=== PATIENT | female | born 1930 | race Caucasian/White ===

== ENCOUNTER 2017-05-11 00:44 | Inpatient (IN) | payer MEDICARE ==
[~2017-05-11] VITALS: Ht 165.1 cm; Wt 79.0 kg
[2017-05-11] VITALS (16 sets, daily range): BP systolic 122–172; BP diastolic 59–85
[~2017-05-11 00:44] MED LIST: ACET-704 PO; ACET325T9 PO; AMIO100T4 PO; AMIO200T2 PO; ASPI325T8 PO; ATOR20TA PO; CALC-98 PO; CEPH-264 PO; CLON0.25 PO; CLON0.5T PO; FURO-68 PO; FURO20TA3 PO; LEVO50TA5 PO; LOSA25TA4 PO; POTA20TA4 PO; POTA20TA82 PO; ROPI1TAB PO; TOPI100T42 PO
[2017-05-11] MEDS ORDERED: FURO-68 PO (00:58)
[2017-05-11] MEDS ORDERED: ACET500T33 PO (00:58)
[2017-05-11] MEDS ORDERED: LEXAPRO20 MG PO (00:58)
[2017-05-11] MEDS ORDERED: POTA20TA82 PO (00:58)
[2017-05-11] MEDS ORDERED: SPIR25TA3 PO (00:58)
[2017-05-11] MEDS ORDERED: HYDROcodone/APAP 5/325MG 1 TAB TABLET PO PRN (01:45)
[2017-05-11] MEDS ORDERED: ACETAMINOPHEN 325 MG TABLET. PO PRN (01:45)
[2017-05-11] MEDS ORDERED: MORPHINE SULFATE 2 MG/ML DISP.SYRIN. IV PRN (01:45)
[2017-05-11] MEDS ORDERED: ONDANSETRON PF 4 MG/2 ML VIAL. IV PRN (01:45)
[2017-05-11] MEDS ORDERED: HEPARIN 25,000UTS/500ML PREMIX 500 ML IV PRN (02:00)
[2017-05-11] MEDS ORDERED: HEPARIN for IV BOLUS 10,000 UNIT/10 ML VIAL. IV PRN (02:00)
[2017-05-11] MEDS: ANTI-COAG MONITOR BY PHARMACY. MC PRN ×2 (04:03→16:12)
[2017-05-11 04:55] LABS: BASO % 1 % (0-3); EOS % 4 % (0-3); HEMATOCRIT 37.1 % (36.0-47.0); HEMOGLOBIN 11.8 g/dL (12.0-15.5); LYMPH # 1.9 x10^3/uL (1.0-4.8); LYMPH % 30 % (24-48); MEAN CORPUSCULAR HEMOGLOBIN 27 pg (25-35); MEAN CORPUSCULAR HGB CONC 32 g/dL (31-37); MEAN CORPUSCULAR VOLUME 86 fL (79-100); MONO % 9 % (0-9); NEUT % 56 % (31-73); PLATELET COUNT 157 x10^3/uL (140-400); RED BLOOD COUNT 4.31 x10^6/uL (3.50-5.40); RED CELL DISTRIBUTION WIDTH 16.6 % (11.5-14.5); WHITE BLOOD COUNT 6.4 x10^3/uL (4.0-11.0)
[2017-05-11 05:15] LABS: INR 1.2 (0.8-1.1); PROTHROMBIN TIME PATIENT 14.5 SEC (11.7-14.0)
[2017-05-11 05:39] LABS: CALCIUM 9.2 mg/dL (8.5-10.1); CREATININE 1.3 mg/dL (0.6-1.0); GFR 38.7; POTASSIUM 3.5 mmol/L (3.5-5.1)
[2017-05-11] MEDS: LEVOTHYROXINE 50 MCG TABLET PO SCH (06:11)
[2017-05-11] MEDS ORDERED: cloNIDine HCL 0.1 MG TABLET PO PRN (07:00)
[2017-05-11] MEDS: CALCIUM CARB/VIT D3 500/200 TABLET. PO SCH ×2 (08:00→15:16)
[2017-05-11] MEDS: CITALOPRAM 20 MG TABLET. PO SCH (09:00)
[2017-05-11] MEDS: ASPIRIN 325 MG TABLET PO SCH (09:01)
[2017-05-11] MEDS: clonazePAM 0.5 MG TABLET PO SCH (09:01)
[2017-05-11] MEDS: AMIODARONE HCL 200 MG TABLET. PO SCH (09:02)
[2017-05-11] MEDS: IV NORMAL SALINE 1000ML BAG 1,000 ML IV SCH ×2 (09:02→19:30)
[2017-05-11] MEDS: ACETYLCYSTEINE 20% ORAL SOLN 600 MG/3 ML SYRINGE. PO SCH ×2 (09:04→20:52)
--- NOTE | 2017-05-11 09:40 | PDOC2 ---
DION BETANCOURT ABLE BODIED WATCHMAN 05/11/17 0940: CARDIAC CONSULT DATE OF CONSULT Date of Consult DATE: 05/11/17 TIME: 09:20 REASON FOR CONSULT Reason for Consult: CP REFERRING PHYSICIAN Referring Physician: Bennett SOURCE Source: Chart review, Patient HISTORY OF PRESENT ILLNESS HISTORY OF PRESENT ILLNESS This is a pleasant 87 yo female admitted for complains of chest pain. Reports that she started having chest pressure yesterday lasting about 2 hours of high intensity then lingered on. She has been having some AMIN and feeling weaker than her usual. Denies any SOA at rest, nausea, palpitations. She is significant for PCI/stent in the past. She has not seen her extrusion technician in>1 yr. Denies nay recent falls or injury and verbalized medication compliance. PAST MEDICAL HISTORY Past Medical History Cardiovascular: AFIB, CAD, HTN, Hyperlipidemia, Other (Sick sinus syndrome), Valvular insufficiency Pulmonary: No pertinent hx CENTRAL NERVOUS SYSTEM: Seizure, TIA, Other (No pertinent ) GI: No pertinent hx Heme/Onc: No pertinent hx Hepatobiliary: No pertinent hx Psych: Anxiety Musculoskeletal: Osteoarthritis Rheumatologic: No pertinent hx Infectious disease: No pertinent hx ENT: No pertinent hx Renal/: CKD3 Endocrine: Hypothyroidism Dermatology: No pertinent hx PAST SURGICAL HISTORY Past Surgical History Pacemaker ([facility] 2013), Total knee replacement (right), Hysterectomy, Other ( brain tumor removal; cardiac cath with stent placement 2008) FAMILY HISTORY Family History Heart Disease (father and mother) SOCIAL HISTORY Smoke: No ALCOHOL: none Drugs: None Lives: Alone (assisted living) CURRENT MEDICATIONS CURRENT MEDICATIONS Current Medications Medications (Trade) Dose Ordered Sig/Dominique Route PRN Reason Start Time Stop Time Status Last Admin Dose Admin Amiodarone HCl (Cordarone) 200 mg DAILY08 PO 05/11/17 08:00 05/11/17 09:02 Aspirin (Yvan Aspirin) 325 mg DAILY PO 05/11/17 09:00 05/11/17 09:01 Levothyroxine Sodium (Synthroid) 50 mcg DAILY07 PO 05/11/17 07:00 05/11/17 06:11 Clonazepam (KlonoPIN) 0.25 mg DAILY PO 05/11/17 09:00 05/11/17 09:01 Info (Anti-Coagulation Monitoring By Pharmacy) 1 each PRN DAILY PRN MC SEE COMMENTS 05/11/17 02:15 05/11/17 04:03 Sodium Chloride 1,000 ml @ 80 mls/hr [id number] IV 05/11/17 07:00 05/11/17 09:02 Acetylcysteine (Mucomyst 20% Oral Solution) 600 mg BID PO 05/11/17 09:00 05/13/17 08:59 05/11/17 09:04 ALLERGIES ALLERGIES: Coded Allergies: Sulfa (Sulfonamide Antibiotics) (Verified Allergy, Intermediate, 01/05/14) phenytoin (Verified Allergy, Intermediate, 01/05/14) ROS Review of System 14 point ROS evaluated with pertinent positives noted per HPI PHYSICAL EXAM General: Alert, Oriented X3, Cooperative, No acute distress HEENT: Atraumatic, Mucous membr. moist/pink Lungs: Clear to auscultation, Normal air movement Heart: Regular rate (V paced), Normal S1, Normal S2, Other (3/6 systolic murmur to LLS border) Abdomen: Soft, No tenderness Extremities: No cyanosis, No edema Skin: No breakdown, No significant lesion Neuro: Normal speech, Sensation intact Psych/Mental Status: Mental status NL, Mood NL MUSCULOSKELETAL: Osteoarthritic changes both hands VITALS VITALS Vital Signs Date Time Temp Pulse Resp B/P (MAP) Pulse Ox O2 Delivery O2 Flow Rate FiO2 05/11/17 09:02 70 154/74 05/11/17 07:00 97.5 18 94 Room Air 97.5 LABS Lab: Laboratory Tests Test 05/11/17 04:00 White Blood Count 6.4 x10^3/uL (4.0-11.0) Red Blood Count 4.31 x10^6/uL (3.50-5.40) Hemoglobin 11.8 g/dL (12.0-15.5) Hematocrit 37.1 % (36.0-47.0) Mean Corpuscular Volume 86 fL (79-100) Mean Corpuscular Hemoglobin 27 pg (25-35) Mean Corpuscular Hemoglobin Concent 32 g/dL (31-37) Red Cell Distribution Width 16.6 % (11.5-14.5) Platelet Count 157 x10^3/uL (140-400) Neutrophils (%) (Auto) 56 % (31-73) Lymphocytes (%) (Auto) 30 % (24-48) Monocytes (%) (Auto) 9 % (0-9) Eosinophils (%) (Auto) 4 % (0-3) Basophils (%) (Auto) 1 % (0-3) Neutrophils # (Auto) 3.6 x10^3uL (1.8-7.7) Lymphocytes # (Auto) 1.9 x10^3/uL (1.0-4.8) Monocytes # (Auto) 0.6 x10^3/uL (0.0-1.1) Eosinophils # (Auto) 0.3 x10^3/uL (0.0-0.7) Basophils # (Auto) 0.0 x10^3/uL (0.0-0.2) Prothrombin Time 14.5 SEC (11.7-14.0) Prothromb Time International Ratio 1.2 (0.8-1.1) Heparin Anti-Xa Act, Unfractionated 0.74 IU/mL (0.30-0.70) Sodium Level 142 mmol/L (136-145) Potassium Level 3.5 mmol/L (3.5-5.1) Chloride Level 107 mmol/L (98-107) Carbon Dioxide Level 25 mmol/L (21-32) Anion Gap 10 (6-14) Blood Urea Nitrogen 27 mg/dL (7-20) Creatinine 1.3 mg/dL (0.6-1.0) Estimated GFR (Cockcroft-Gault) 38.7 Glucose Level 86 mg/dL (70-99) Calcium Level 9.2 mg/dL (8.5-10.1) Troponin I Quantitative 0.117 ng/mL (0.000-0.055) ECHOCARDIOGRAM ECHOCARDIOGRAM <Conclusion> The left ventricle is normal size. The left ventricular systolic function is normal and the ejection fraction is within normal range. The Ejection Fraction is 55-60%. The atrial septum is aneurysmal and color flow Doppler reveals a small patent foramen ovale. There is no significant aortic valvular stenosis. Doppler and Color Flow revealed moderate aortic regurgitation. Doppler and Color-flow revealed mild mitral regurgitation. Doppler and Color Flow revealed moderate tricuspid regurgitation. The PA pressure was estimated at 56 mmHg. Doppler and Color Flow revealed trace to mild pulmonic valvular regurgitation. There is no evidence of significant pericardial effusion. DATE: 11/08/141616 STRESS TEST STRESS TEST Conclusion 1. No EKG evidence of stress-induced ischemia. 2. Nuclear imaging shows no reversible ischemia or infarct. 3. Normal left ventricular systolic function with ejection fraction of greater than 70%. 4. Low risk Lexiscan nuclear stress test. DATE: 11/08/14 1550 ASSESSMENT/PLAN ASSESSMENT/PLAN 1. NSTEMI 2. CAD: 2008 s/p PCI/stent placement to RCA and OMB 3. HTN: controlled 4. PAFIB: V paced with first degree AV block. 5. HLP 6. SSS/PPM in situ: [facility] 2013 7. Hypothyroidism 8. CKD3 9. Small PFO 10. Multiple falls 6x in the last 6 months no traumatic injury. No dizziness, reports imbalance, defer to PCP Recommendations 1. Risks and benefits of LHC discussed and agreeable to proceed 2. interrogate device. 3. TTE, TSH lipids. 4. Hep gtt per protocol, IVF. 5. Secondary prevention, continue amiodarone. Problems: BIANKA CANDELARIA MD 05/11/17 1630: CARDIAC CONSULT ALLERGIES ALLERGIES: Coded Allergies: Sulfa (Sulfonamide Antibiotics) (Verified Allergy, Intermediate, 01/05/14) phenytoin (Verified Allergy, Intermediate, 01/05/14) ASSESSMENT/PLAN ASSESSMENT/PLAN Pt. seen and examined. Agree with above QUALITY ASSURANCE TECHNICIAN note. LHC demonstrates small vessel disease. Plan for med titration first and then consider PCI if med therapy fails. Thanks for consultation. Problems: DION BETANCOURT APRN May 11, 2017 09:40 BIANKA CANDELARIA MD May 11, 2017 16:30
[2017-05-11 09:54] LABS: CHOLESTEROL/HDL RATIO 2.2
--- NOTE | 2017-05-11 10:15 | PDOC1 ---
History and Physical Date of Admission Date of Admission DATE: 05/11/17 TIME: 10:12 Identification/Chief Complaint Chief Complaint chest pain soa Problems: Source Source: Caregiver, Chart review, Patient History of Present Illness History of Present Illness 87 y.o female who is a known cadiac pt of [facility] cards group, transferred from [place] for CP AMIN. Significant co morbids cardiac aguilera including hx stents and pacer, started on heparin gtt and transferred here with plans of [facility] today, Pt CP free, VS ok, no overnight calls, Past Medical History Cardiovascular: AFIB, CAD, HTN, Hyperlipidemia, Other Pulmonary: No pertinent hx CENTRAL NERVOUS SYSTEM: Seizure, TIA, Other GI: No pertinent hx Heme/Onc: No pertinent hx Hepatobiliary: No pertinent hx Psych: Anxiety Musculoskeletal: Osteoarthritis Rheumatologic: No pertinent hx Infectious disease: No pertinent hx Renal/: No pertinent hx Endocrine: Hypothyroidism Past Surgical History Past Surgical History: Pacemaker, Total knee replacement, Hysterectomy, Other Family History Family History: Heart Disease Social History Smoke: No ALCOHOL: none Drugs: None Current Medications Current Medications Current Medications Ondansetron HCl (Zofran) 4 mg PRN Q6HRS PRN IV NAUSEA/VOMITING; Start at 01:45 Acetaminophen (Tylenol) 650 mg PRN Q6HRS PRN PO MILD PAIN / TEMP; Start at 01:45 Morphine Sulfate 2 mg PRN Q2HR PRN IV SEVERE PAIN; Start 05/11/17 at 01:45 Acetaminophen/ Hydrocodone Bitart (Lortab 5/325) 1 tab PRN Q6HRS PRN PO MODERATE PAIN; Start 05/11/17 at 01:45 Amiodarone HCl (Cordarone) 200 mg DAILY08 PO Last administered on 05/11/17 09 :02; Start 05/11/17 at 08:00 Aspirin (Yvan Aspirin) 325 mg DAILY PO Last administered on 05/11/17 09:01; Start 05/11/17 at 09:00 Atorvastatin Calcium (Lipitor) 20 mg HS PO ; Start 05/11/17 at 21:00 Clonazepam (KlonoPIN) 0.5 mg HS PO ; Start 05/11/17 at 21:00 Furosemide (Lasix) 40 mg DAILY PO ; Start 05/11/17 at 09:00 Levothyroxine Sodium (Synthroid) 50 mcg DAILY07 PO Last administered on 06:11; Start 05/11/17 at 07:00 Spironolactone (Aldactone) 25 mg DAILY PO ; Start 05/11/17 at 09:00 Topiramate (Topamax) 100 mg HS PO ; Start 05/11/17 at 21:00 Calcium/Vitamin D (Oscal D 500mg/ 200uts) 1 tab BIDWMEALS PO ; Start 05/11/17 at 08:00 Citalopram Hydrobromide (CeleXA) 40 mg DAILY PO ; Start 05/11/17 at 09:00 Potassium Chloride (Klor-Con) 20 meq DAILYWBKFT PO ; Start 05/11/17 at 08:00 Clonazepam (KlonoPIN) 0.25 mg DAILY PO Last administered on 05/11/17 09:01; Start 05/11/17 at 09:00 Heparin Sodium/ Dextrose 500 ml @ 0 mls/hr CONT PRN IV SEE I/O RECORD; Start 05/11/17 at 02:00 Heparin Sodium (Porcine) (Heparin Sodium) 1,950 unit PRN Q6HRS PRN IV FOR UFH LEVEL LESS THAN 0.2; Start 05/11/17 at 02:00 Info (Anti-Coagulation Monitoring By Pharmacy) 1 each PRN DAILY PRN MC SEE COMMENTS Last administered on 05/11/17 04:03; Start 05/11/17 at 02:15 Sodium Chloride 1,000 ml @ 80 mls/hr [id number] IV Last administered on 09:02; Start 05/11/17 at 07:00 Acetylcysteine (Mucomyst 20% Oral Solution) 600 mg BID PO Last administered on 05/11/17 09:04; Start 05/11/17 at 09:00; Stop 05/13/17 at 08:59 Clonidine HCl (Catapres) 0.1 mg PRN Q1HR PRN PO HYPERTENSION, SEE COMMENTS; Start 05/11/17 at 07:00 Active Scripts Active Reported Spironolactone 25 Mg Tablet 1 Tab PO DAILY Tylenol Extra Strength (Acetaminophen) 500 Mg Tablet 1,000 Mg PO Q8HRS PRN Potassium Chloride 20 Meq Tablet.er 20 Meq PO DAILY Lexapro (Escitalopram Oxalate) 20 Mg Tablet 1 Tab PO DAILY Lasix (Furosemide) 40 Mg Tablet 1 Tab PO DAILY Calcium + Vitamin D Tablet (Calcium Carbonate/Vitamin D3) 1 Each Tablet 1 Each PO BID94 Clonazepam 0.25 Mg Tab.rapdis 0.25 Mg PO DAILY Amiodarone Hcl 100 Mg Tablet 200 Mg PO DAILY08 Lipitor (Atorvastatin Calcium) 20 Mg Tablet 20 Mg PO HS Topamax (Topiramate) 100 Mg Tablet 100 Mg PO HS Klonopin (Clonazepam) 0.5 Mg Tablet 0.5 Mg PO HS Aspirin 325 Mg Tablet 325 Mg PO DAILY Levothyroxine Sodium 50 Mcg Tablet 50 Mcg PO DAILYAC Allergies Allergies: Coded Allergies: Sulfa (Sulfonamide Antibiotics) (Verified Allergy, Intermediate, 01/05/14) phenytoin (Verified Allergy, Intermediate, 01/05/14) ROS General: No: Chills, Night Sweats, Fatigue, Malaise, Appetite, Other PSYCHOLOGICAL ROS: No: Anxiety, Behavioral Disorder, Concentration difficultie , Decreased libido, Depression, Disorientation, Hallucinations, Hostility, Irritablity, Memory difficulties, Mood Swings, Obsessive thoughts, Physical abuse, Sexual abuse, Sleep disturbances, Suicidal ideation, Other Eyes: No Blurry vision, No Decreased vision, No Double vision, No Dry eyes, No Excessive tearing, No Eye Pain, No Itchy Eyes, No Loss of vision, No Photophobia , No Scotomata, No Uses contacts, No Uses glasses, No Other HEENT: No: Heacaches, Visual Changes, Hearing change, Nasal congestion, Nasal discharge, Oral lesions, Sinus pain, Sore Throat, Epistaxis, Sneezing, Snoring, Tinnitus, Vertigo, Vocal changes, Other ALLERGY AND IMMUNOLOGY: No: Hives, Insect Bite Sensitivity, Itchy/Watery Eyes, Nasal Congestion, Post Nasal Drip, Seasonal Allergies, Other Hematological and Lymphatic: No: Bleeding Problems, Blood Clots, Blood Transfusions, Brusing, Night Sweats, Pallor, Swollen Lymph Nodes, Other ENDOCRINE: No: Breast Changes, Galactorrhea, Hair Pattern Changes, Hot Flashes , Malaise/lethargy, Mood Swings, Palpitations, Polydipsia/polyuria, Skin Changes , Temperature Intolerance, Unexpected Weight Changes, Other Breast: No New/Changing Breast Lumps, No Nipple changes, No Nipple discharge, No Other Respiratory: YES: Shortness of breath, SOB with excertion Cardiovascular: yes Chest Pain Gastrointestinal: No Nausea, No Vomiting, No Abdominal Pain, No Diarrhea, No Constipation, No Melena, No Hematochezia, No Other Genitourinary: No Dysuria, No Frequency, No Incontinence, No Hematuria, No Retention, No Discharge, No Urgency, No Pain, No Flank Pain, No Other, No , No , No , No , No , No , No Musculoskeletal: No Gait Disturbance, No Joint Pain, No Joint Stiffness, No Joint Swelling, No Muscle Pain, No Muscular Weakness, No Pain In:, No Swelling In:, No Other Neurological: No Behavorial Changes, No Bowel/Bladder ControlChng, No Confusion , No Dizziness, No Gait Disturbance, No Headaches, No Impaired Coord/balance, No Memory Loss, No Numbness/Tingling, No Seizures, No Speech Problems, No Tremors, No Visual Changes, No Weakness, No Other Skin: No Dry Skin, No Eczema, No Hair Changes, No Lumps, No Mole Changes, No Mottling, No Nail Changes, No Pruritus, No Rash, No Skin Lesion Changes, No Other, No Acne Physical Exam General: Alert, Oriented X3, Cooperative, No acute distress HEENT: Atraumatic, PERRLA, EOMI Lungs: Clear to auscultation, Normal air movement Heart: S1S2, RRR, no thrills, no rubs, no gallops, no murmurs Cardiovascular: S1, S2 Breasts: Normal, Rt breast nml w/o mass, Lt breast nml w/o mass, Nipples normal Abdomen: Normal bowel sounds, Soft, No tenderness, No hepatosplenomegaly, No masses Rectal Exam: not examined Extremities: No clubbing, No cyanosis, No edema, Normal pulses, No tenderness/ swelling Skin: No rashes, No breakdown, No significant lesion Neuro: Normal gait, Normal speech, Strength at 5/5 X4 ext, Normal tone, Sensation intact, Cranial nerves 3-12 NL, Reflexes 2+ Vitals Vitals Vital Signs Date Time Temp Pulse Resp B/P (MAP) Pulse Ox O2 Delivery O2 Flow Rate FiO2 05/11/17 09:02 70 154/74 05/11/17 07:00 97.5 18 94 Room Air 97.5 Labs Labs Laboratory Tests Test 05/11/17 04:00 White Blood Count 6.4 x10^3/uL (4.0-11.0) Red Blood Count 4.31 x10^6/uL (3.50-5.40) Hemoglobin 11.8 g/dL (12.0-15.5) Hematocrit 37.1 % (36.0-47.0) Mean Corpuscular Volume 86 fL (79-100) Mean Corpuscular Hemoglobin 27 pg (25-35) Mean Corpuscular Hemoglobin Concent 32 g/dL (31-37) Red Cell Distribution Width 16.6 % (11.5-14.5) Platelet Count 157 x10^3/uL (140-400) Neutrophils (%) (Auto) 56 % (31-73) Lymphocytes (%) (Auto) 30 % (24-48) Monocytes (%) (Auto) 9 % (0-9) Eosinophils (%) (Auto) 4 % (0-3) Basophils (%) (Auto) 1 % (0-3) Neutrophils # (Auto) 3.6 x10^3uL (1.8-7.7) Lymphocytes # (Auto) 1.9 x10^3/uL (1.0-4.8) Monocytes # (Auto) 0.6 x10^3/uL (0.0-1.1) Eosinophils # (Auto) 0.3 x10^3/uL (0.0-0.7) Basophils # (Auto) 0.0 x10^3/uL (0.0-0.2) Prothrombin Time 14.5 SEC (11.7-14.0) Prothromb Time International Ratio 1.2 (0.8-1.1) Heparin Anti-Xa Act, Unfractionated 0.74 IU/mL (0.30-0.70) Sodium Level 142 mmol/L (136-145) Potassium Level 3.5 mmol/L (3.5-5.1) Chloride Level 107 mmol/L (98-107) Carbon Dioxide Level 25 mmol/L (21-32) Anion Gap 10 (6-14) Blood Urea Nitrogen 27 mg/dL (7-20) Creatinine 1.3 mg/dL (0.6-1.0) Estimated GFR (Cockcroft-Gault) 38.7 Glucose Level 86 mg/dL (70-99) Calcium Level 9.2 mg/dL (8.5-10.1) Troponin I Quantitative 0.117 ng/mL (0.000-0.055) Triglycerides Level 62 mg/dL (0-150) Cholesterol Level 152 mg/dL (0-200) LDL Cholesterol, Calculated 70 mg/dL (0-100) VLDL Cholesterol, Calculated 12 mg/dL (0-40) Non-HDL Cholesterol Calculated 82 mg/dL (0-129) HDL Cholesterol 70 mg/dL (40-60) Cholesterol/HDL Ratio 2.2 Laboratory Tests Test 05/11/17 04:00 White Blood Count 6.4 x10^3/uL (4.0-11.0) Red Blood Count 4.31 x10^6/uL (3.50-5.40) Hemoglobin 11.8 g/dL (12.0-15.5) Hematocrit 37.1 % (36.0-47.0) Mean Corpuscular Volume 86 fL (79-100) Mean Corpuscular Hemoglobin 27 pg (25-35) Mean Corpuscular Hemoglobin Concent 32 g/dL (31-37) Red Cell Distribution Width 16.6 % (11.5-14.5) Platelet Count 157 x10^3/uL (140-400) Neutrophils (%) (Auto) 56 % (31-73) Lymphocytes (%) (Auto) 30 % (24-48) Monocytes (%) (Auto) 9 % (0-9) Eosinophils (%) (Auto) 4 % (0-3) Basophils (%) (Auto) 1 % (0-3) Neutrophils # (Auto) 3.6 x10^3uL (1.8-7.7) Lymphocytes # (Auto) 1.9 x10^3/uL (1.0-4.8) Monocytes # (Auto) 0.6 x10^3/uL (0.0-1.1) Eosinophils # (Auto) 0.3 x10^3/uL (0.0-0.7) Basophils # (Auto) 0.0 x10^3/uL (0.0-0.2) Prothrombin Time 14.5 SEC (11.7-14.0) Prothromb Time International Ratio 1.2 (0.8-1.1) Heparin Anti-Xa Act, Unfractionated 0.74 IU/mL (0.30-0.70) Sodium Level 142 mmol/L (136-145) Potassium Level 3.5 mmol/L (3.5-5.1) Chloride Level 107 mmol/L (98-107) Carbon Dioxide Level 25 mmol/L (21-32) Anion Gap 10 (6-14) Blood Urea Nitrogen 27 mg/dL (7-20) Creatinine 1.3 mg/dL (0.6-1.0) Estimated GFR (Cockcroft-Gault) 38.7 Glucose Level 86 mg/dL (70-99) Calcium Level 9.2 mg/dL (8.5-10.1) Troponin I Quantitative 0.117 ng/mL (0.000-0.055) Triglycerides Level 62 mg/dL (0-150) Cholesterol Level 152 mg/dL (0-200) LDL Cholesterol, Calculated 70 mg/dL (0-100) VLDL Cholesterol, Calculated 12 mg/dL (0-40) Non-HDL Cholesterol Calculated 82 mg/dL (0-129) HDL Cholesterol 70 mg/dL (40-60) Cholesterol/HDL Ratio 2.2 VTE Prophylaxis Ordered VTE Prophylaxis Devices: Yes VTE Pharmacological Prophylaxi: Yes Assessment/Plan Assessment/Plan NSTEMI CAD: 2009 s/p PCI/stent placement to RCA and OMB. Stable. HTN PAFIB: on Amio HLP SSS/PPM in situ: [facility] 2013 Hypothyroidism CKD3 PFO PLAn: NPO C OCnt emds SUpportive meds Heparin gtt TARSHA LOU MD May 11, 2017 10:15
[2017-05-11] MEDS ORDERED: IODIXANOL 320 MG/ML 100 ML VIAL. ONE (12:33)
[2017-05-11] MEDS ORDERED: LIDOCAINE 2% 20 ML VIAL. ONE (12:33)
[2017-05-11] MEDS ORDERED: HEPARIN for IV BOLUS 10,000 UNIT/10 ML VIAL. ONE (13:09)
[2017-05-11] MEDS ORDERED: fentaNYL PF VIAL 100 MCG/2 ML VIAL ONE (13:09)
[2017-05-11] MEDS ORDERED: MIDAZOLAM HCL/PF 2 MG/2 ML VIAL. ONE (13:09)
[2017-05-11] MEDS ORDERED: VERAPAMIL 5 MG/2 ML VIAL. ONE (13:09)
--- NOTE | 2017-05-11 13:10 | PDOC ---
MODERATE SEDATION ASSESSMENT RISKS/ALTERNATIVES Risks/Alternatives Risks and alternatives of this type of sedation and procedure discussed with: RISK/ALTERNATIVES: Patient H & P ON CHART H & P H & P on chart and reviewed for co-morbid conditions and appropriate labs. H&P ON CHART: Yes STATUS PREG STATUS ASSESSED: N/A MEDS/ALLERGIES REVIEWED Meds/Allergies Reviewed Medications and Allergies including time and route of recently administered narcotics and sedatives. MEDS/ALLERGIES REVIEWED: Yes ASA RATING ASA RATING: III AIRWAY ASSESSMENT Airway Assessment Airway patency, oral function limitations, presence of caps, crowns, dentures, partials, and ability to extend neck assessed. AIRWAY ASSESSMENT: Yes MALLAMPATI SCORE MALLAMPATI SCORE: II PRE-SEDATION ASSESSMENT PRE-SEDATION ASSESSMENT: Yes BIANKA CANDELARIA MD May 11, 2017 13:10
[2017-05-11] MEDS ORDERED: NITROGLYCERIN 200 MCG/2 ML SYRINGE FOR CATH/VASC LAB. ONE (13:11)
[2017-05-11] MEDS ORDERED: hydrALAZINE 20 MG/ML VIAL. ONE (13:15)
[2017-05-11] MEDS ORDERED: NITROGLYCERIN 200 MCG/2 ML SYRINGE FOR CATH/VASC LAB. IART ONE (13:30)
[2017-05-11] MEDS ORDERED: LIDOCAINE 2% 20 ML VIAL. IJ ONE (13:30)
[2017-05-11] MEDS ORDERED: fentaNYL PF VIAL 100 MCG/2 ML VIAL IV ONE (13:30)
[2017-05-11] MEDS ORDERED: HEPARIN for IV BOLUS 10,000 UNIT/10 ML VIAL. IART ONE (13:30)
[2017-05-11] MEDS ORDERED: hydrALAZINE 20 MG/ML VIAL. IVP ONE (13:30)
[2017-05-11] MEDS ORDERED: MIDAZOLAM HCL/PF 2 MG/2 ML VIAL. IV ONE (13:30)
[2017-05-11] MEDS ORDERED: IODIXANOL 320 MG/ML 100 ML VIAL. IART ONE (13:30)
[2017-05-11] MEDS ORDERED: VERAPAMIL 5 MG/2 ML VIAL. IART ONE (13:30)
--- NOTE | 2017-05-11 13:33 | CARD ---
APPROVED REPORT EXAM: Two-dimensional and M-mode echocardiogram with Doppler and color Doppler. Other Information Quality : Good INDICATION Chest Pain 2D DIMENSIONS Left Atrium(2D)4.7 (1.6-4.0cm)IVSd1.3 (0.7-1.1cm) Aortic Root(2D)2.7 (2.0-3.7cm)LVDd4.3 (3.9-5.9cm) LVOT Diameter2.0 (1.8-2.4cm)PWd1.3 (0.7-1.1cm) LVDs3.2 (2.5-4.0cm)FS (%) 26.0 % SV42.4 mlLVEF(%)51.3 (>50%) Aortic Valve AoV Peak Hudson.161.9cm/sAoV VTI35.7cm AO Peak GR.10.5mmHgLVOT Peak Hudson.77.5cm/s AO Mean GR.6mmHgAVA (VMAX)1.52cm2 MARILU (VTI)1.84ps5BR P 1/2 [id number] Mitral Valve MV E Yrykilxk83.7cm/sMV DECEL [id number] MV A Salrrfjs49.2cm/sE/A Ratio2.7 Tricuspid Valve TR P. Mkjxgrpr346jn/sRAP [id number] TR Peak Gr.99zyQoYUMG36wvKa LEFT VENTRICLE The left ventricle is normal size. There is mild to moderate concentric left ventricular hypertrophy. Left ventricle systolic function is borderline low-normal. The estimated Ejection Fraction is 50%. S eptal wall motion abnormality likely related to pacing. Moderate diastolic dysfunction. RIGHT VENTRICLE The right ventricle is normal size. The right ventricular systolic function is normal. Pacer wire not ed in Right Ventricle and Right Atria. ATRIA The left atrium is severely dilated. The right atrium is severely dilated. Interatrial septum is inta ct without evidence of ASD or PFO, noted on 2-D or Doppler imaging. AORTIC VALVE The aortic valve is mildly thickened. Doppler and Color Flow revealed mild aortic regurgitation. Ther e is no significant aortic valvular stenosis. MITRAL VALVE Mitral annular calcification is mild. There is no evidence of mitral valve prolapse. There is no mitr al valve stenosis. Doppler and Color-flow revealed mild mitral regurgitation. TRICUSPID VALVE The anterior leaflet is thickened. Doppler and Color Flow revealed moderate tricuspid regurgitation. There is moderate pulmonary hypertension. The PA pressure was estimated at 50 mmHg. There is no tricu spid valve stenosis. PULMONIC VALVE Doppler and Color Flow revealed trace to mild pulmonic valvular regurgitation. There is no pulmonic v alvular stenosis. GREAT VESSELS The aortic root is normal in size. The ascending aorta is normal in size. IVC appears dilated and landrum s not collapse with inspiration. PERICARDIAL EFFUSION There is no pleural effusion. There is no evidence of significant pericardial effusion. Critical Notification Critical Value: No <Conclusion> Left ventricle systolic function is borderline low-normal. The estimated Ejection Fraction is 50%. Septal wall motion abnormality likely related to pacing. Moderate diastolic dysfunction. Pacer wire noted in Right Ventricle and Right Atria. Interatrial septum is intact without evidence of ASD or PFO, noted on 2-D or Doppler imaging. Doppler and Color Flow revealed mild aortic regurgitation. Doppler and Color Flow revealed moderate tricuspid regurgitation. There is moderate pulmonary hyperte nsion. The PA pressure was estimated at 50 mmHg.
[2017-05-11] MEDS: FUROSEMIDE 40 MG TABLET. PO SCH (15:15)
[2017-05-11] MEDS: SPIRONOLACTONE 25 MG TABLET PO SCH (15:15)
[2017-05-11] MEDS: POTASSIUM CHLORIDE 20 MEQ TABLET.ER. PO SCH (15:16)
--- NOTE | 2017-05-11 16:04 | CARD ---
APPROVED REPORT Procedure(s) performed: SEDATION TIME: 34 MINUTES Left heart cath, coronary angiography HISTORY The patient is a 87 year-old female with a history of : coronary artery disease, hypertension, dyslip idemia. INDICATION The indication(s) include : non-STEMI . CASE TECHNIQUE During this case, Fluoroscopy and low osmolar contrast were used for imaging. PROCEDURE NARRATIVE The patient was brought electively to the cardiac catheterization lab. A timeout was performed confi rming the patient's name, date of , procedure, and site of procedure. All necessary personnel w ere wearing the appropriate protective equipment and radiation monitor devices. After explaining the risks and benefits of the procedure and alternatives, informed consent was obtained. (See nursing no devyn for medications administered). The right wrist was sterilely prepped and draped in the usual fas hion. The right wrist was infiltrated with 1 mL of 2% lidocaine for subcutaneous anesthesia. A 6 Fr ench Terumo glide sheath was inserted into the right radial artery without difficulty. Right and lef t coronary angiography was performed using a 6Fr TIG 4.0 catheter. Left ventricular end diastolic pr essure was obtained with a pigtail catheter and pullback was performed after left ventriculography. All catheter exchanges and advancements were performed over a guidewire. At case completion the righ t radial sheath was removed and a Terumo radial band was applied with 13 ml of air. The patient tole rated the procedure well and there were no immediate complications. HEMODYNAMICS: LVEDP 20 mm Hg No gradient on LV to aortic pullback. LEFT VENTRICULOGRAM: Deferred due to renal insufficiency. CORONARY ANGIOGRAPHY: LM is a moderate caliber vessel with approximatel 30% stenosis. LAD is a moderate caliber vessel with an ostial 30% stenosis followed by proximal post-stenotic dilat ion and mild irregularities throughout the vessel of up to 20%. Three small caliber diagonal vessels are free of significant disaese. LCx is a small caliber non-dominant vessel a proximal stent extending into the OM1 with mild diffuse 50% ISR The proximal to distal LCx is jailed by the OM1 stent and has a stenosis of approximately 90%. RCA is a large caliber dominant vessel with a patent proximal and distal stent. There is mild diffuse proximal to mid 30% stenosis, a 50% ISR of the distal stent. RPDA is a small caliber vessel with mild diffuse irregularities of up to 30% RPDA is a moderate caliber vessel with normal angiographic appearance. Conclusion 1. Moderate three vessel coronary artery disease without evidence of focal high grade stenosis. 2. Mildly elevate LVEDP at 20 mm Hg. Recommendations 1. Proximal LCx jailed by OM1 stent, would treat medically and consider PCI only if refractory angin a despite adequate medical therapy and BP control (SBP > 180 since arrival to hospital). OM1/LCx are small caliber vessels and not easily amenable to PCI. 2. Aggresive BP control. 3. F/u with Dr. Cerna on outpt basis.
[2017-05-11 16:11] LABS: BILIRUBIN,URINE NEGATIVE (NEG); GLUCOSE,URINE NEGATIVE (NEG); NITRITE,URINE POSITIVE (NEG); PH,URINE 7.5; PROTEIN,URINE NEGATIVE (NEG-TRACE); UROBILINOGEN,URINE 0.2 mg/dL (0.2 mg/dL)
[2017-05-11 16:18] LABS: BACTERIA,URINE MANY /HPF (0-FEW)
[2017-05-11 16:19] LABS: RBC,URINE 0 /HPF (0-2); SQUAMOUS EPITHELIAL CELL,UR OCC /LPF
[2017-05-11] MEDS: ISOSORBIDE MONONITRATE ER 30 MG TAB.ER.24H PO SCH (17:41)
[2017-05-11] MEDS ORDERED: TOPIRAMATE 100 MG TABLET. PO SCH (21:00)
[2017-05-11] MEDS ORDERED: clonazePAM 0.5 MG TABLET PO SCH (21:00)
[2017-05-11] MEDS ORDERED: ATORVASTATIN CALCIUM 20 MG TABLET PO SCH (21:00)
[2017-05-12] MEDS: IV NORMAL SALINE 1000ML BAG 1,000 ML IV SCH (00:37)
[2017-05-12 03:50] VITALS: BP 131/63
[2017-05-12 05:13] LABS: HEMATOCRIT 36.6 % (36.0-47.0); HEMOGLOBIN 11.8 g/dL (12.0-15.5); RED BLOOD COUNT 4.25 x10^6/uL (3.50-5.40); RED CELL DISTRIBUTION WIDTH 16.9 % (11.5-14.5); WHITE BLOOD COUNT 6.4 x10^3/uL (4.0-11.0)
[2017-05-12 05:39] LABS: CALCIUM 8.7 mg/dL (8.5-10.1); CREATININE 1.1 mg/dL (0.6-1.0); POTASSIUM 3.3 mmol/L (3.5-5.1)
[2017-05-12] MEDS: LEVOTHYROXINE 50 MCG TABLET PO SCH (06:35)
[2017-05-12 07:00] VITALS: BP 152/64
[2017-05-12] MEDS: ACETYLCYSTEINE 20% ORAL SOLN 600 MG/3 ML SYRINGE. PO SCH (09:36)
[2017-05-12] MEDS: CITALOPRAM 20 MG TABLET. PO SCH (09:37)
[2017-05-12] MEDS: ASPIRIN 325 MG TABLET PO SCH (09:37)
[2017-05-12] MEDS: CALCIUM CARB/VIT D3 500/200 TABLET. PO SCH (09:37)
[2017-05-12] MEDS: clonazePAM 0.5 MG TABLET PO SCH (09:37)
[2017-05-12] MEDS: FUROSEMIDE 40 MG TABLET. PO SCH (09:37)
[2017-05-12] MEDS: AMIODARONE HCL 200 MG TABLET. PO SCH (09:38)
[2017-05-12] MEDS: POTASSIUM CHLORIDE 20 MEQ TABLET.ER. PO SCH (09:38)
[2017-05-12] MEDS: ISOSORBIDE MONONITRATE ER 30 MG TAB.ER.24H PO SCH (09:38)
[2017-05-12] MEDS: SPIRONOLACTONE 25 MG TABLET PO SCH (09:38)
[2017-05-12 11:00] VITALS: BP 146/72
--- NOTE | 2017-05-12 13:18 | PDOC ---
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 05/12/17 1318: CARDIO Progress Notes Date and Time Date of Service 05/12/2017 Time of Evaluation 1140 Subjective Subjective: No Chest Pain, No shortness of breath, No Palpitations, Other ( ambulated in hallway without difficulty) Vitals Vitals Vital Signs Date Time Temp Pulse Resp B/P (MAP) Pulse Ox O2 Delivery O2 Flow Rate FiO2 05/12/17 09:38 71 131/63 05/12/17 08:00 Room Air 05/12/17 07:00 97.6 19 97 97.6 Weight Weight [ ] Input and Output Intake and Output Intake and Output 05/13/17 07:00 Intake Total 250 ml Balance 250 ml Intake Oral 250 ml Laboratory Labs Laboratory Tests Test 05/11/17 15:30 05/11/17 21:44 05/12/17 04:20 05/12/17 08:26 Urine Collection Type Unknown Urine Color Yellow Urine Clarity Cloudy Urine pH 7.5 Urine Specific Nunez >=1.030 Urine Protein Negative mg/dL (NEG-TRACE) Urine Glucose (UA) Negative mg/dL (NEG) Urine Ketones (Stick) Negative mg/dL (NEG) Urine Blood Negative (NEG) Urine Nitrite Positive (NEG) Urine Bilirubin Negative (NEG) Urine Urobilinogen Dipstick 0.2 mg/dL (0.2 mg/dL) Urine Leukocyte Esterase Moderate (NEG) Urine RBC 0 /HPF (0-2) Urine WBC 11-20 /HPF (0-4) Urine Squamous Epithelial Cells Occ /LPF Urine Bacteria Many /HPF (0-FEW) Glucose (Fingerstick) 117 mg/dL (70-99) 78 mg/dL (70-99) White Blood Count 6.4 x10^3/uL (4.0-11.0) Red Blood Count 4.25 x10^6/uL (3.50-5.40) Hemoglobin 11.8 g/dL (12.0-15.5) Hematocrit 36.6 % (36.0-47.0) Mean Corpuscular Volume 86 fL (79-100) Mean Corpuscular Hemoglobin 28 pg (25-35) Mean Corpuscular Hemoglobin Concent 32 g/dL (31-37) Red Cell Distribution Width 16.9 % (11.5-14.5) Platelet Count 159 x10^3/uL (140-400) Sodium Level 143 mmol/L (136-145) Potassium Level 3.3 mmol/L (3.5-5.1) Chloride Level 108 mmol/L (98-107) Carbon Dioxide Level 23 mmol/L (21-32) Anion Gap 12 (6-14) Blood Urea Nitrogen 21 mg/dL (7-20) Creatinine 1.1 mg/dL (0.6-1.0) Estimated GFR (Cockcroft-Gault) 47.0 Glucose Level 91 mg/dL (70-99) Calcium Level 8.7 mg/dL (8.5-10.1) Test 05/12/17 12:23 Glucose (Fingerstick) 102 mg/dL (70-99) Physical Exam HEENT: Neck Supple W Full Motion Chest: Symmetric LUNGS: Clear to Auscultation Heart: S1S2, RRR (V paced) Abdomen: Soft N/T Extremities: No Edema, No Calf Tenderness Neurology: alert, oriented, follow commands Other Exams right radial arteriotomy site intact, no swelling, neurovascular status intact Assessment Assessment 1. NSTEMI: S/P LHC with proximal LCx jailed by OM1 stent, OM1/LCx are small caliber vessels and not easily amenable to PCI. Moderate three vessel coronary artery disease without evidence of focal high grade stenosis. Mildly elevate LVEDP at 20 mm Hg. 2. CAD: 2009 s/p PCI/stent placement to RCA and OMB. CP free 3. HTN: controlled 4. PAFIB: V paced with appearance of first degree AV block in contrast to 100% AFIB per interrogation since 10/15/2016 5. HLP 6. SSS/PPM in situ: [facility] [place] 2013, normal functioning device with no significant arrhythmias and good battery life on DDDR mode. 7. Hypothyroidism 8. CKD3 9. Hx of Small PFO: now absent on current TTE 10. Multiple falls 6x in the last 6 months no traumatic injury. No dizziness, reports imbalance 11. Moderate pulmonary HTN 12. Chronic diastolic CHF: compensated Recommendations 1. Continue medical therapy optimization in regards to coronary disease. Add imdur to regimen, low dose toprol and start on plavix. 2. Follow up in office in 4 weeks. 3. Replace K 4. Secondary prevention, continue amiodarone, lasix and aldactone. 5. May need Neurology referral in regards to ataxia. 6. Presently not an anticoagulation candidate given her advanced age and multiple falls. Continue on 81 mg ECASA for stroke prevention. GIANA HOUSTON MD 05/13/17 1439: CARDIO Progress Notes Assessment Assessment Patient seen and examined 05/12/17 (late entry). Agree with COMMUNITY COORDINATOR's assessment and plan. Cardiac cath results as noted above. Patient presently chest pain-free. Continue current medical regimen. Okay for discharge from cardiac standpoint. DION BETANCOURT APRN May 12, 2017 13:18 GIANA HOUSTON MD May 13, 2017 14:39
[2017-05-12 15:00] VITALS: BP 127/59
[2017-05-12] MEDS ORDERED: METO-239 PO (17:22)
[2017-05-12] MEDS ORDERED: CLOP75TA PO (17:22)
[2017-05-12] MEDS ORDERED: ISOS30TA4 PO (17:22)
[2017-05-12] MEDS ORDERED: LACTOBACILLUS RHAMNOSUS GG 1 CAPSULE. PO SCH (21:00)
[2017-05-13] MEDS ORDERED: CLOPIDOGREL BISULFATE 75 MG TABLET PO SCH (08:00)
[2017-05-13] MEDS ORDERED: ASPIRIN ENTERIC COATED 325 MG TABLET.DR. PO SCH (08:00)
[2017-05-13] MEDS ORDERED: ASPIRIN ENTERIC COATED 81 MG TABLET.DR. PO SCH (08:00)
[2017-05-13] MEDS ORDERED: METOPROLOL SUCC 24HR ER 25 MG TAB.ER.24H. PO SCH (09:00)
== END 2017-05-12 18:00 | disposition home or self-care (01) | DRG 281 ==
LOC: 2 NORTH 00:44
PROVIDERS: ADMIT Internal Medicine; ATTEND Internal Medicine
PROC: 4A023N7 Measurement of Cardiac Sampling and Pressure, Left Heart, Percutaneous Approach (ICD-10-PCS; principal; 2017-05-11)
PROC: B2111ZZ Fluoroscopy of Multiple Coronary Arteries using Low Osmolar Contrast (ICD-10-PCS; 2017-05-11)
DX: I21.4 Non-ST elevation (NSTEMI) myocardial infarction (principal); I13.0 Hypertensive heart and chronic kidney disease with heart failure and stage 1 through stage 4 chronic kidney disease, or unspecified chronic kidney disease; I27.20 Pulmonary hypertension, unspecified; I50.32 Chronic diastolic (congestive) heart failure; I48.91 Unspecified atrial fibrillation; Q21.1 Atrial septal defect; E03.9 Hypothyroidism, unspecified; E78.5 Hyperlipidemia, unspecified; I25.10 Atherosclerotic heart disease of native coronary artery without angina pectoris; I44.0 Atrioventricular block, first degree; I73.9 Peripheral vascular disease, unspecified; F41.9 Anxiety disorder, unspecified; M19.90 Unspecified osteoarthritis, unspecified site; N18.3 Chronic kidney disease, stage 3 (moderate); R29.6 Repeated falls; Z96.651 Presence of right artificial knee joint; Z82.49 Family history of ischemic heart disease and other diseases of the circulatory system; Z86.73 Personal history of transient ischemic attack (TIA), and cerebral infarction without residual deficits; Z98.61 Coronary angioplasty status; Z90.710 Acquired absence of both cervix and uterus; Z95.5 Presence of coronary angioplasty implant and graft; I49.5 Sick sinus syndrome
CPT/HCPCS: 36415; 80048; 80061; 81001; 82962; 84443; 84484; 85025; 85027; 85520; 85610; 87086; 93306; 93458; 99152; 99153; C1769; C1892; J0360; J0696; J1644; J2250; J3010; J3490; J7030; 97110; 97116; 97535; J2001